=== PATIENT | male | born 2000 | race African-American/Black ===

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

== ENCOUNTER 2023-04-30 16:51 | Emergency (ER) | payer OTHER ==
[2023-04-30 17:07] VITALS: BP 158/70; PULSE 62; RESP 18; TEMP 98.2; BMI 32.3
[2023-04-30] MEDS ORDERED: BACITRACIN ZINC 15 GM TUBE TOPICAL OINTMENT ONE (18:01)
[2023-04-30] MEDS ORDERED: DIPHTH,PERTUSS(ACELL),TET 0.5 ML DISP.SYRIN IM ONE (18:18)
[2023-04-30] MEDS ORDERED: BACITRACIN 0.9 GM PACKET TP ONE (18:25)
== END 2023-04-30 18:47 | disposition home or self-care (01) ==
LOC: JERFT 16:51
PROC: 0HQFXZZ Repair Right Hand Skin, External Approach (ICD-10-PCS; principal; 2023-04-30)
PROC: 2W3JX1Z Immobilization of Right Finger using Splint (ICD-10-PCS; 2023-04-30)
DX: S61.204A Unspecified open wound of right ring finger without damage to nail, initial encounter (principal); Y04.0XXA Assault by unarmed brawl or fight, initial encounter
CPT/HCPCS: 12001-25; 29130; 99282-25

== ENCOUNTER 2024-07-05 02:23 | Emergency (ER) | payer OTHER ==
[2024-07-05 02:29] VITALS: BP 119/89; PULSE 105; RESP 20; TEMP 99.1; BMI 32.5
[2024-07-05] MEDS: IBUPROFEN 600 MG TABLET (FP) PO ONE (02:54)
== END 2024-07-05 03:41 | disposition home or self-care (01) ==
LOC: JER 02:23
DX: J10.1 Influenza due to other identified influenza virus with other respiratory manifestations (principal); R50.9 Fever, unspecified; R05.9 Cough, unspecified; R09.81 Nasal congestion; R53.81 Other malaise; M79.10 Myalgia, unspecified site; R00.0 Tachycardia, unspecified; Z20.822 Contact with and (suspected) exposure to COVID-19
CPT/HCPCS: 0241U-QW; 99283-25